=== PATIENT | male | born 1985 | race African-American/Black ===

== ENCOUNTER 2021-05-24 03:39 | Emergency (ER) | payer OTHER, SELFPAY ==
--- NOTE | 2021-05-24 03:41 | XRR_ITS ---
PROCEDURE INFORMATION: Exam: XR Chest Exam date and time: 05/24/2021 3:41 AM Age: 35 years old Clinical indication: Shortness of breath; Patient HX: SOB with weakness. Covid +. TECHNIQUE: Imaging protocol: XR of the chest. Views: 1 view. COMPARISON: No relevant prior studies available. FINDINGS: Lungs: No CHF/pulmonary edema. Very mild left lateral lower lung opacities could represent atelectasis or pneumonitis. Visible lungs otherwise appear essentially clear. Pleural spaces: No visible pneumothorax. No definite pleural fluid. Heart/Mediastinum: Heart size is within normal limits. Bones/joints: No significant acute finding. XR/XR chest 1V portable [id number] IMPRESSION: 1. Very mild left lateral lower lung opacities could represent atelectasis or pneumonitis. 2. Other findings discussed above.
[2021-05-24 03:55] VITALS: BP 150/97; PULSE 82; RESP 18; TEMP 37.9; O2SAT 94; BMI 44.0
--- NOTE | 2021-05-24 04:13 | W.ED.COVID ---
HPI - COVID General: Chief Complaint: COVID symptoms Stated Complaint: COVID + Time Seen by Provider: 05/24/21 04:10 Source: patient Mode of arrival: ambulatory Limitations: no limitations Triage information: Has fever, cough or shortness of breath. Exposure to COVID + person last 14 days History of Present Illness: HPI Narrative: 35-year-old male states that he has been having cough body aches low-grade fever since Saturday states that he was seen in [place] on Saturday and tested positive for Covid he states that he has been on the road working and has not had any Tylenol or Motrin states that he felt feverish tonight with body aches and has had a worsening cough he is no history of COPD he is in no distress here he is able to speak in full sentences room air O2 sats 95% currently denies any worsening proving factors. COVID 19 common symptoms: positive fever(s), chills, non-productive cough and body aches; negative headache(s), throat pain, nausea, vomiting or diarrhea COVID 19 other sytmptoms: negative chest pain COVID Results: No Data to Display Review of Systems Const: Reports: fever(s), chills and body aches Eyes: Denies: blurry vision or eye discomfort ENMT: Denies: throat pain or dental pain Card: Denies: chest pain Resp: Reports: non-productive cough GI: Denies: abdominal pain, nausea, vomiting or diarrhea : Denies: dysuria Musc: Denies: neck pain or back pain Skin/Breast: Denies: rash Neuro: Denies: headache(s) Psych: Denies: depression Enrique/Lymph: Denies: easy bruising All/Imm: Denies: urticaria Physical Exam Const: COMMON NORMALS: no acute distress, patient oriented x3 and healthy appearing HENMT: COMMON NORMALS: normocephalic and atraumatic HEAD & SCALP: normocephalic and atraumatic Eye: COMMON NORMALS: Equal, round and reactive pupils present and EOMs intact bilaterally PUPIL: Yes Equal, round and reactive pupils present Neck/C-Spine: COMMON NORMALS: full ROM and supple Chest: COMMONS NORMALS: normal inspection of the chest and normal palpation of entire chest wall Resp: COMMON NORMALS: normal respiratory effort, No retractions, No use of accessory muscles and clear to auscultation bilaterally AUSCULTATION: clear to auscultation bilaterally Cardio: COMMON NORMALS: regular rate, regular rhythm and No murmurs present (Cardio) RATE: regular rate RHYTHM: regular rhythm GI: COMMON NORMALS: Normal to inspection, nondistended, normoactive bowel sounds present, Soft to palpation, non-tender and no masses PALPATION: Yes Soft to palpation Extremity: COMMON NORMALS: normal to inspection and full ROM Neuro: COMMON NORMALS: patient oriented x3, moves all extremities and no focal motor deficits Psych: COMMON NORMALS: mental status grossly normal, Normal thought process present and cooperative THOUGHT PROCESS: Normal thought process present Skin: COMMON NORMALS: no rashes or lesions noted and no wounds GENERAL SKIN EXAM: no rashes or lesions noted Course Vital Signs: Vital signs: Vital Signs Temperature 100.2 F H 05/24/21 03:55 Pulse Rate 82 05/24/21 03:55 Respiratory Rate 18 05/24/21 03:55 Blood Pressure 150/97 05/24/21 03:55 Pulse Oximetry 94 05/24/21 03:55 MDM - COVID MDM Narrative: Medical decision making narrative: Patient presents with Covid he is day 5 of symptoms tested positive on Saturday he is well-appearing here is no respiratory distress chest x-ray here is normal patient given albuterol inhaler here will prescribe albuterol for home patient given Decadron shot as well. Imaging Data: CXR: Attestation: I personally reviewed and interpreted this imaging study as follows: My impression: no acute abnormality EKG Data: EKG 1: Attestation: I personally reviewed and interpreted this EKG as follows: EKG interpretation date: 05/24/21 EKG interpretation time: 04:03 Interpretation: nsr hr [address] or t wave abnormalities qrs 91 qtc 375 COVID Results: No Data to Display Discharge Plan Discharge Patient Disposition: Home Clinical Impression: COVID-19 Condition: Stable Prescriptions: New albuterol sulfate 90 mcg/actuation HFA aerosol inhaler 2 inh INHALATION Q6H PRN (Reason: shortness of breath or wheezing) Qty: 8 RF: 0 Discharge Orders: Discharge ED (Routine); Ordered 05/24/21 Ordered By: Stas Boyd Discharge Diet: Advance as tolerated Discharge Activity: Resume usual activity Patient Instructions: COVID-19 (Coronavirus Disease 2019) (ED) Coding Level of Care Code ED [employer] for [facility]alvo
[2021-05-24 04:24] VITALS: O2SAT 94
[2021-05-24] MEDS: albuterol 8 gm MDI 2 PUFF INHALATION (04:30)
[2021-05-24 04:38] VITALS: BP 126/84; PULSE 104; RESP 18; O2SAT 94
== END 2021-05-24 04:47 | disposition home or self-care (01) ==
PROVIDERS: Emergency Provider Emergency Medicine
DX: U07.1 COVID-19 (principal)
CPT/HCPCS: 71045; 94640; 99283; J3535